=== PATIENT | female | born 1995 | race Caucasian/White ===

== ENCOUNTER 2022-04-08 16:58 | Emergency (ER) | payer SELFPAY ==
[~2022-04-08] VITALS: Ht 167.6 cm; Wt 65.8 kg
[2022-04-08 17:06] VITALS: BP 155/87
--- NOTE | 2022-04-08 17:13 | NUR ---
PT STATES SHE DID NOT WANT TO WAIT ANYMORE, LWBS AT THIS TIME
--- NOTE | 2022-04-08 17:19 | NUR ---
PT WALKED BACK INTO THE ER AND STATED "I HAD ANOTHER PANIC ATTACK AND WANT TO BE SEEN"
--- NOTE | 2022-04-08 19:18 | NUR ---
Patient discharged with v/s stable. Written and verbal after care instructions given and explained. Patient verbalized understanding. Ambulatory with steady gait. All questions addressed prior to discharge. Advised to follow up with PMD.
== END 2022-04-08 19:18 | disposition home or self-care (01) ==
LOC: MED 16:58
DX: R07.9 Chest pain, unspecified (principal)
CPT/HCPCS: 71045; 93005; 99283

== ENCOUNTER 2022-04-30 11:43 | Emergency (ER) | payer OTHER ==
[~2022-04-30] VITALS: Ht 165.1 cm; Wt 70.3 kg
[2022-04-30 11:48] VITALS: BP 104/78
--- NOTE | 2022-04-30 11:54 | NUR ---
PT IN TRIAGE ATTEMPTING TO STAND WHEN SHE INHALED DEEPLY STATED THAT HER LEFT LOWER ABD HURT AND SLUMPED OVER TO THE FLOOR OF TRIAGE. PT REMAINED AWAKE THE ENTIRE TIME, DID NOT HIT HER HEAD, WAS ABLE TO GET UP AND WAS ASSISTED TO BED 12
[2022-04-30] MEDS ORDERED: NACL 0.9% 1,000 ML IV ONE (12:00)
[2022-04-30 12:19] LABS: BASOPHILS # (AUTO) 0.2 K/uL (0.00-0.22); BASOPHILS % (AUTO) 1.1 % (0.0-2.0); EOSINOPHILS % (AUTO) 0.1 % (0.0-4.0); HEMATOCRIT 37.7 % (36-48); HEMOGLOBIN 12.2 g/dL (12.0-16.0); LYMPHOCYTES # (AUTO) 2.4 K/uL (2.5-16.5); LYMPHOCYTES % (AUTO) 16.4 % (20.5-51.1); MEAN CORPUSCULAR HEMOGLOBIN 26 pg (27-31); MEAN CORPUSCULAR HGB CONC 32 g/dL (33-37); MEAN CORPUSCULAR VOLUME 81.2 fL (80-94); MONOCYTES % (AUTO) 7.2 % (1.7-9.3); NEUTROPHILS # (AUTO) 10.8 K/uL (1.8-7.7); NEUTROPHILS % (AUTO) 75.2 % (42.2-75.2); PLATELET COUNT (AUTO) 372 K/uL (140-450); RED BLOOD CELL COUNT(AUTO) 4.65 MIL/uL (4.20-5.40); RED CELL DISTRIBUTION WIDTH 16.9 % (11.6-13.7); WHITE BLOOD COUNT (AUTO) 14.4 K/uL (4.8-10.8)
--- NOTE | 2022-04-30 12:23 | NUR ---
XRAY AT BEDSIDE.
[2022-04-30 12:36] LABS: ALBUMIN 4.8 g/dL (3.4-5.0); ANION GAP 22.9 (8-16); ASPARTATE AMINOTRANSFERASE 23 U/L (15-37); CARBON DIOXIDE 19.5 mmol/L (21-32); CHLORIDE 99 mmol/L (98-107); CREATININE 0.9 mg/dL (0.6-1.3); GFR ARICAN-AMERICAN 97 mL/min (>90); GLUCOSE 127 mg/dL (74-106); LIPASE 87 U/L (73-393); POTASSIUM 3.4 mmol/L (3.5-5.1); SODIUM SERUM 138 mmol/L (136-145); TOTAL BILIRUBIN 0.8 mg/dL (0.0-1.0); UREA NITROGEN, BLOOD 11 mg/dL (7-18)
--- NOTE | 2022-04-30 12:51 | NUR ---
Pt ambulated to restroom with steady gait.
[2022-04-30 14:00] VITALS: BP 132/84
[2022-04-30 14:02] LABS: APPEARANCE,URINE CLEAR (CLEAR); BILIRUBIN,URINE NEGATIVE (NEGATIVE); BLOOD, URINE NEGATIVE (NEGATIVE); COLOR,URINE YELLOW (YELLOW); LEUKOCYTE ESTERASE ,URINE NEGATIVE (NEGATIVE); NITRITE, URINE NEGATIVE (NEGATIVE); PH,URINE 6.5 (5.0-9.0); UGLUCOSE NEGATIVE (NEGATIVE)
[2022-04-30] MEDS ORDERED: ED NON STOCK ORDER 1 EA MISC MC ONE (14:20)
[2022-04-30] MEDS ORDERED: KETOROLAC 15 MG/ML VIAL IVP ONE (14:20)
[2022-04-30] MEDS ORDERED: LIDOCAINE 5% 1 EA PATCH TP ONE (14:21)
[2022-04-30 14:30] LABS: BARBITURATE, URINE NEGATIVE ng/ml (NEG <=200); BENZODIAZEPINE, URINE NEGATIVE ng/mL (NEG <=200); CANNABINOID, URINE NEGATIVE ng/mL (NEG <=50); COCAINE, URINE POSITIVE ng/mL (NEG <=300); OPIATE, URINE NEGATIVE ng/mL (NEG <=2000); PHENCYCLIDINE SCREEN,URINE NEGATIVE ng/mL (NEG <=25)
[2022-04-30] MEDS ORDERED: LID5T TP (14:41)
[2022-04-30] MEDS ORDERED: HYDR25CA1 PO (14:41)
--- NOTE | 2022-04-30 14:45 | NUR ---
IV removed, catheter intact and site benign. Applied folded 4x4 gauze and tape to stop bleeding.
--- NOTE | 2022-04-30 14:50 | NUR ---
Patient discharged with v/s stable. Written and verbal after care instructions about nonspecific chest pain and palpitations given and explained. Patient alert, oriented and verbalized understanding of instructions. Ambulatory with steady gait. All questions addressed prior to discharge. ID band removed. Patient advised to follow up with PMD. Rx of Hydroxyzine pamoate and lidocaine hyd given. Patient educated on indication of medication including possible reaction and side effects. Opportunity to ask questions provided and answered.
== END 2022-04-30 14:50 | disposition home or self-care (01) ==
LOC: MED 11:43
DX: R06.02 Shortness of breath (principal); R10.9 Unspecified abdominal pain; R00.2 Palpitations
CPT/HCPCS: 36415; 71045; 80053; 80305; 81003; 81025; 83690; 84484; 85025; 85379; 93005; 96360; 99285; J1885; J7030

== ENCOUNTER 2022-05-03 09:18 | Emergency (ER) | payer OTHER ==
[~2022-05-03] VITALS: Ht 175.3 cm; Wt 65.8 kg
[~2022-05-03 09:18] MED LIST: HYDR25CA1 PO; LID5T TP
--- NOTE | 2022-05-03 09:21 | NUR ---
BIBA TAKEN TO BED 5
[2022-05-03 09:24] VITALS: BP 123/74
--- NOTE | 2022-05-03 09:50 | NUR ---
27 y/o female biba from home for palpiations x today. Patient reports palpitations with a pending clinical study manager appointment. Patient was seen here on 04/30/22 for same symptoms. Patient has nausea and dizziness. Medical History:Denies NKDA
--- NOTE | 2022-05-03 10:17 | NUR ---
Dr. Villa evaluating patient at bedside.
[2022-05-03] MEDS ORDERED: NACL 0.9% 1,000 ML IV ONE (10:20)
[2022-05-03 11:17] LABS: ANION GAP 15.9 (8-16); CARBON DIOXIDE 24.9 mmol/L (21-32); CREATININE 0.7 mg/dL (0.6-1.3); POTASSIUM 3.8 mmol/L (3.5-5.1)
[2022-05-03 11:21] LABS: BASOPHILS # (AUTO) 0.1 K/uL (0.00-0.22); BASOPHILS % (AUTO) 0.9 % (0.0-2.0); EOSINOPHILS % (AUTO) 0.5 % (0.0-4.0); HEMOGLOBIN 12.5 g/dL (12.0-16.0); LYMPHOCYTES # (AUTO) 1.3 K/uL (2.5-16.5); LYMPHOCYTES % (AUTO) 17.5 % (20.5-51.1); MEAN CORPUSCULAR HEMOGLOBIN 27 pg (27-31); MEAN CORPUSCULAR HGB CONC 32 g/dL (33-37); MEAN CORPUSCULAR VOLUME 82.8 fL (80-94); MONOCYTES # (AUTO) 0.3 K/uL (0.8-1.0); MONOCYTES % (AUTO) 4.2 % (1.7-9.3); NEUTROPHILS # (AUTO) 5.8 K/uL (1.8-7.7); NEUTROPHILS % (AUTO) 76.9 % (42.2-75.2); PLATELET COUNT (AUTO) 356 K/uL (140-450); RED BLOOD CELL COUNT(AUTO) 4.71 MIL/uL (4.20-5.40); RED CELL DISTRIBUTION WIDTH 16.7 % (11.6-13.7); WHITE BLOOD COUNT (AUTO) 7.5 K/uL (4.8-10.8)
[2022-05-03 11:33] LABS: MAGNESIUM 1.5 mg/dL (1.8-2.4); PHOSPHORUS 2.8 mg/dL (2.5-4.9); THYROID STIMULATING HORMONE 2.41 uIU/mL (0.34-3.74)
[2022-05-03] MEDS ORDERED: MAGNESIUM SULFATE 50% 1,000 MG in NACL 0.9% 50 ML IV ONE (11:50)
--- NOTE | 2022-05-03 12:15 | NUR ---
Patient ambulated to restroom with steady gait.
[2022-05-03 14:05] VITALS: BP 96/70
--- NOTE | 2022-05-03 14:05 | NUR ---
Patient discharged with v/s stable. Written and verbal after care instructions given. Patient verbalized understanding. Ambulatory with steady gait. All questions addressed prior to discharge. Advised to follow up with PMD.
--- NOTE | 2022-05-03 14:06 | NUR ---
The patient's care was reviewed and supervised by Sana Garzon RN.
--- NOTE | 2022-05-09 09:30 | NUR ---
LATE ENTRY -- CONFIRMED WITH NURSE MG INFUSION COMPLETED AT 1326 ON 05/03/22
== END 2022-05-03 14:05 | disposition home or self-care (01) ==
LOC: MED 09:18
DX: E83.42 Hypomagnesemia (principal); R00.2 Palpitations; G43.909 Migraine, unspecified, not intractable, without status migrainosus; Z88.0 Allergy status to penicillin; Z79.899 Other long term (current) drug therapy
CPT/HCPCS: 36415; 80048; 81025; 83735; 84100; 84443; 84484; 85025; 93005; 96361; 96365; 99285; J3475; J7030